=== PATIENT | female | born 1980 | race Two or more races ===

== ENCOUNTER 2022-01-19 15:34 | Outpatient (CLI) | payer OTHER | END 2022-01-19 17:12 | disposition home or self-care (01) | LOC: PRENATAL 15:34 | PROVIDERS: ATTEND Obstetrics & Gynecology Maternal & Fetal Medicine | DX: O36.80X0 Pregnancy with inconclusive fetal viability, not applicable or unspecified (principal); O09.519 Supervision of elderly primigravida, unspecified trimester; Z3A.13 13 weeks gestation of pregnancy ==

== ENCOUNTER 2022-03-11 12:55 | Outpatient (CLI) | payer OTHER ==
[2022-03-11] MEDS ORDERED: INDOMETHACIN25 MG PO (20:02)
[2022-03-11] MEDS ORDERED: PROMETRIUM200 MG PO (20:02)
== END 2022-03-11 15:20 | disposition home or self-care (01) ==
LOC: PRENATAL 12:55
PROVIDERS: ATTEND Obstetrics & Gynecology Maternal & Fetal Medicine
DX: O09.519 Supervision of elderly primigravida, unspecified trimester (principal); O35.0XX0 Maternal care for (suspected) central nervous system malformation in fetus, not applicable or unspecified; O35.3XX0 Maternal care for (suspected) damage to fetus from viral disease in mother, not applicable or unspecified; Z3A.20 20 weeks gestation of pregnancy

== ENCOUNTER 2022-03-11 15:27 | Inpatient (IN) | payer OTHER ==
[~2022-03-11] VITALS: Ht 162.6 cm; Wt 82.1 kg
[2022-03-11] MEDS ORDERED: INDOMETHACIN25 MG PO (20:02)
[2022-03-11] MEDS ORDERED: PROMETRIUM200 MG PO (20:02)
== END 2022-03-12 00:30 | disposition home or self-care (01) | DRG 819 ==
LOC: LDR 15:27
PROVIDERS: ADMIT Obstetrics & Gynecology Maternal & Fetal Medicine; ATTEND Obstetrics & Gynecology Maternal & Fetal Medicine
PROC: 4A1HXCZ Monitoring of Products of Conception, Cardiac Rate, External Approach (ICD-10-PCS; 2022-03-11)
PROC: 0UVC7ZZ Restriction of Cervix, Via Natural or Artificial Opening (ICD-10-PCS; principal; 2022-03-11 21:00)
DX: O26.872 Cervical shortening, second trimester (principal); Z3A.20 20 weeks gestation of pregnancy; Z20.822 Contact with and (suspected) exposure to COVID-19

== ENCOUNTER 2022-03-14 12:02 | Emergency (ER) | payer OTHER ==
[~2022-03-14] VITALS: Ht 162.6 cm; Wt 82.1 kg
[~2022-03-14 12:02] MED LIST: INDOMETHACIN25 MG PO; PROMETRIUM200 MG PO
== END 2022-03-14 15:24 | disposition home or self-care (01) ==
LOC: ER 12:02
DX: O29.42 Spinal and epidural anesthesia induced headache during pregnancy, second trimester (principal); Z3A.21 21 weeks gestation of pregnancy

== ENCOUNTER 2022-04-08 08:05 | Outpatient (CLI) | payer OTHER ==
[~2022-04-08 08:05] MED LIST changes: +ZITHROMAX500 MG PO
== END 2022-04-08 09:15 | disposition home or self-care (01) ==
LOC: PRENATAL 08:05
PROVIDERS: ATTEND Obstetrics & Gynecology Maternal & Fetal Medicine
DX: O09.519 Supervision of elderly primigravida, unspecified trimester (principal); O26.849 Uterine size-date discrepancy, unspecified trimester; O26.879 Cervical shortening, unspecified trimester; Z14.8 Genetic carrier of other disease; Z3A.24 24 weeks gestation of pregnancy

== ENCOUNTER 2022-04-08 09:38 | Outpatient (CLI) | payer OTHER | END 2022-04-08 09:39 | disposition home or self-care (01) | LOC: LAB 09:38 | PROVIDERS: ATTEND Obstetrics & Gynecology Maternal & Fetal Medicine | DX: O26.879 Cervical shortening, unspecified trimester (principal); O09.219 Supervision of pregnancy with history of pre-term labor, unspecified trimester ==

== ENCOUNTER 2022-06-01 15:06 | Outpatient (CLI) | payer OTHER | END 2022-06-01 16:15 | disposition home or self-care (01) | LOC: PRENATAL 15:06 | PROVIDERS: ATTEND Obstetrics & Gynecology Maternal & Fetal Medicine | DX: O09.519 Supervision of elderly primigravida, unspecified trimester (principal); O26.849 Uterine size-date discrepancy, unspecified trimester; O36.8199 Decreased fetal movements, unspecified trimester, other fetus; Z3A.32 32 weeks gestation of pregnancy ==